=== PATIENT | female | born 1995 | race Caucasian/White ===

== ENCOUNTER 2018-11-07 16:29 | Emergency (ER) | payer BC ==
[~2018-11-07] VITALS: Ht 170.2 cm; Wt 120.2 kg
[2018-11-07 19:00] VITALS: BP 127/71
== END 2018-11-07 19:01 | disposition home or self-care (01) ==
LOC: M.ERS 16:29
DX: S93.401A Sprain of unspecified ligament of right ankle, initial encounter (principal); F17.200 Nicotine dependence, unspecified, uncomplicated; X50.1XXA Overexertion from prolonged static or awkward postures, initial encounter; Y93.01 Activity, walking, marching and hiking; Y92.89 Other specified places as the place of occurrence of the external cause; Y99.8 Other external cause status